=== PATIENT | female | born 1955 | race Asian ===

== ENCOUNTER 2016-07-22 14:36 | Outpatient (CLI) | payer OTHER ==
[~2016-07-22 14:36] MED LIST: B-125000 MC1 SL; CETI10TA; FLUT0.05; FOLI1TAB26; LEVO0.1224 PO; LORA10TA3 PO; METO50TA63; MULTIVIT/MIN OR; NYSTCRE EX; VITAMIN D50000 UNT OR; Z-PAK PO
== END 2016-07-22 19:12 | disposition home or self-care (01) ==
LOC: US 14:36
DX: E03.8 Other specified hypothyroidism (principal)

== ENCOUNTER 2017-03-23 14:41 | Outpatient (CLI) | payer BC | END 2017-03-23 22:33 | disposition home or self-care (01) | LOC: CT 14:41 | DX: M54.5 Low back pain (principal); R10.2 Pelvic and perineal pain; K62.89 Other specified diseases of anus and rectum | CPT/HCPCS: 36415; 82565; 84520 ==